=== PATIENT | male | born 1945 | race Caucasian/White ===

== ENCOUNTER 2017-05-10 15:43 | Emergency (ER) | payer OTHER, MEDICARE ==
[2017-05-10 16:02] VITALS: BP 129/77
--- NOTE | 2017-05-10 17:26 | UC ---
Respiratory Complaint HPI - HPI Summary HPI Summary: 71 y/o male present to the urgent care c/o fatigue, cough and SOB since last Tuesday05/06/2017. 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 After that, he felt dizzy w/ mild SOB. In the afternoon he felt very tired and mild cough developed, and less control in urination. On Tuesday, the urinary problems resolved, but the dry cough continue with mild PERKINS. He has been taking ASA and Perkins resolved. . Pt denies fever, Ansal congetion, Chest pain, N/V/D. Pt has no other complains. - History of Current Complaint Hx Obtained From: Patient Onset/Duration: Gradual Onset, Lasting Days, Still Present Timing: Constant Severity Initially: Mild Severity Currently: Moderate Pain Intensity: 0 Pain Scale Used: 0-10 Numeric Character: Cough: Nonproductive Aggravating Factors: Exertion Alleviating Factors: Nothing Associated Signs And Symptoms: Positive: Dyspnea - Risk Factors Pulmonary Embolism Risk Factors: Negative Cardiac Risk Factors: Negative Pseudomonas Risk Factors: Negative Tuberculosis Risk Factors: Negative <Tessa Dotson - Last Filed: 05/12/17 14:55> <Daly Marie - Last Filed: 05/13/17 08:02> - History of Current Complaint Chief Complaint: UCRespiratory Stated Complaint: CHEST CONGESTION Time Seen by Provider: 05/10/17 16:33 - Allergies/Home Medications Allergies/Adverse Reactions: Allergies Allergy/AdvReac Type Severity Reaction Status Date / Time Lactose Intolerance (GI) Allergy Unknown Verified 07/27/14 15:19 Reaction Details GLUTEN Allergy Unknown Uncoded 07/27/14 15:19 Reaction Details PMH/Surg Hx/FS Hx/Imm Hx Previously Healthy: Yes Endocrine History: Dyslipidemia - Surgical History Surgical History: Yes Surgery Procedure, Year, and Place: CATARACT LEFT EYE-05/29/14-[facility] - Family History Known Family History: Positive: Cardiac Disease Family History: Prostate cancer - Social History Occupation: Retired Alcohol Use: Rare Alcohol Amount: 2 DRINKS/WEEK Substance Use Type: None Smoking Status (MU): Never Smoked Tobacco Have You Smoked in the Last Year: No <Tessa Dotson - Last Filed: 05/12/17 14:55> Review of Systems Constitutional: Fatigue Skin: Negative Eyes: Negative ENT: Negative Respiratory: Shortness Of Breath, Cough Cardiovascular: Negative Gastrointestinal: Negative Genitourinary: Negative Motor: Negative Neurovascular: Negative Musculoskeletal: Negative Neurological: Negative Psychological: Negative All Other Systems Reviewed And Are Negative: Yes <Tessa Dotson - Last Filed: 05/12/17 14:55> Physical Exam Triage Information Reviewed: Yes Appearance: Well-Appearing, No Pain Distress, Well-Nourished, Thin Vital Signs: Initial Vital Signs Temp 99.8 F 05/10/17 15:59 Pulse 90 05/10/17 15:59 Resp 18 05/10/17 15:59 BP 129/77 05/10/17 15:59 Pulse Ox 98 05/10/17 15:59 Vital Signs Reviewed: Yes Eye Exam: Normal Eyes: Positive: Conjunctiva Clear - PERRLA, EOMI, fundi grossly normal ENT Exam: Normal ENT: Positive: Normal ENT inspection, Hearing grossly normal, Pharynx normal, TMs normal Dental Exam: Normal Neck exam: Normal Neck: Positive: Supple, Nontender, No Lymphadenopathy Respiratory Exam: Normal Respiratory: Positive: Chest non-tender, Lungs clear, Normal breath sounds Cardiovascular Exam: Normal Cardiovascular: Positive: RRR, No Murmur, Pulses Normal Abdominal Exam: Normal Abdomen Description: Positive: Nontender, No Organomegaly, Soft. Negative: CVA Tenderness (R), CVA Tenderness (L) Bowel Sounds: Positive: Present Musculoskeletal Exam: Normal Musculoskeletal: Positive: Strength Intact, ROM Intact, No Edema Neurological Exam: Normal Psychological Exam: Normal Skin Exam: Normal <Tessa Dotson - Last Filed: 05/12/17 14:55> Vital Signs: Initial Vital Signs Temp 99.8 F 05/10/17 15:59 Pulse 90 05/10/17 15:59 Resp 18 05/10/17 15:59 BP 129/77 05/10/17 15:59 Pulse Ox 98 05/10/17 15:59 <Daly Marie - Last Filed: 05/13/17 08:02> UC Diagnostic Evaluation - Laboratory O2 Sat by Pulse Oximetry: 98 <Tessa Dotson - Last Filed: 05/12/17 14:55> Respiratory Course/Dx - Course Course Of Treatment: 71 y/o male present to the urgent care c/o fatigue, cough and SOB since last Tuesday05/06/2017. 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 After that, he felt dizzy w / mild SOB. In the afternoon he felt very tired and mild cough developed, and less control in urination. On Tuesday, the urinary problems resolved, but the dry cough continue with mild PERKINS. He has been taking ASA and Perkins resolved. . Pt denies fever, Ansal congetion, Chest pain, N/V/D. Hx obtained. PE WNL. Pt O2Sat 98%. Pr Rx Tessalon tabs PO to alleviate symptoms of cough and Albuterol inhaler prn in case Pt feels more SOB. Pt advised to increase fluid, eat well and rest and if symptoms do not improve or worsen to f/u with his PCP for further evaluation and treatmenT. Pr understood and agreed. - Differential Dx/Diagnosis Differential Diagnosis/HQI/PQRI: Bronchitis, Influenza, Laryngitis, Lower Resp Infection, Sinusitis Provider Diagnoses: 1-Cough. 2-Fatigue <Tessa Dotson - Last Filed: 05/12/17 14:55> Discharge <Tessa Dotson - Last Filed: 05/12/17 14:55> <Daly Marie - Last Filed: 05/13/17 08:02> - Discharge Plan Condition: Stable Disposition: HOME Prescriptions: Albuterol HFA INHALER* [Ventolin HFA Inhaler*] 1 puff INH Q6H PRN #1 mdi PRN Reason: Shortness Of Breath Benzonatate CAP* [Tessalon 100 MG CAP*] 100 mg PO TID #15 cap Patient Education Materials: Bronchospasm (ED), Fatigue (ED) Referrals: Nissa Pereira MD [Primary Care Provider] - 3 Days Additional Instructions: Please take medication to alleviate symptoms of cough, increase fluid intake, rest, eat well. If symptoms do not improve in 3-7 days please f/u with your PCP for further evaluation and treatment. Attestation Statement User Type: Provider - I was available for consult. This patient was seen by the AISHWARYA. The patient was not presented to, seen by, or examined by me. -Madison <Daly Marie - Last Filed: 05/13/17 08:02>
== END 2017-05-10 17:25 | disposition home or self-care (01) ==
LOC: UCEAST 15:43
DX: R05 Cough (principal); R53.83 Other fatigue; R06.00 Dyspnea, unspecified; E78.5 Hyperlipidemia, unspecified; Z98.42 Cataract extraction status, left eye
CPT/HCPCS: 99212; G0463